=== PATIENT | female | born 1970 | race Caucasian/White ===

== ENCOUNTER 2016-05-16 05:04 | Inpatient (IN) | payer OTHER ==
[2016-05-13 15:47] VITALS: BMI 34.0
[2016-05-16] VITALS (31 sets, daily range): BP systolic 93–146; BP diastolic 45–70; PULSE 55–76; RESP 12–25; Ht 162.6 cm; Wt 88.6 kg
[~2016-05-16] VITALS: Ht 162.6 cm; Wt 88.6 kg
[~2016-05-16 05:04] MED LIST: CEFAZOLIN 2 GM/50 ML (PMX) 50 ML IVPB ONE; LACTATED RINGER'S 1,000 ML IV* SCH
[2016-05-16] MEDS ORDERED: PROPOFOL 20 ML ONE (06:11)
[2016-05-16] MEDS ORDERED: ROCURONIUM 50 MG INJ ONE (06:11)
[2016-05-16] MEDS ORDERED: LIDOCAINE 2% (SDV) 5 ML INJ ONE (06:11)
[2016-05-16] MEDS ORDERED: GLYCOPYRROLATE 1 MG INJ ONE (06:11)
[2016-05-16] MEDS ORDERED: NEOSTIGMINE 3 MG/3 ML SYRINGE ONE (06:11)
[2016-05-16] MEDS ORDERED: DEXAMETHASONE 4 MG/ML 1 ML INJ ONE ×2 (06:12→06:17)
[2016-05-16] MEDS ORDERED: MIDAZOLAM 1 MG/ML 2 ML INJ ONE (06:12)
[2016-05-16] MEDS ORDERED: FENTAnyl 50 MCG/ML VIAL ONE (06:12)
[2016-05-16] MEDS ORDERED: ONDANSETRON 4 MG INJ ONE (06:13)
[2016-05-16] MEDS ORDERED: hydrALAzine 20 MG INJ IV PRN (06:30)
[2016-05-16] MEDS ORDERED: OXYCODONE/ACETAMINOPHEN (5/325) TAB PO PRN ×2 (06:30)
[2016-05-16] MEDS ORDERED: DIPHENHYDRAMINE 50 MG INJ IV PRN (06:30)
[2016-05-16] MEDS ORDERED: FENTAnyl 50 MCG/ML VIAL IV PRN ×2 (06:30)
[2016-05-16] MEDS ORDERED: LABETALOL HCL 20MG INJ IV PRN (06:30)
[2016-05-16] MEDS ORDERED: ATROPINE 1 MG/10 ML SYRINGE IV PRN (06:30)
[2016-05-16] MEDS ORDERED: morphine (1 MG/ML) 10ML SYRINGE IV PRN ×3 (06:30)
[2016-05-16] MEDS ORDERED: HYDROmorphONE (0.2 MG/ML) 10ML SYG IV PRN ×3 (06:30)
[2016-05-16] MEDS ORDERED: MEPERIDINE 25 MG INJ IV PRN (06:30)
[2016-05-16] MEDS ORDERED: EPHEDrine SULFATE 50 MG/5 ML SYG IV PRN (06:30)
[2016-05-16] MEDS ORDERED: ONDANSETRON 4 MG INJ IV PRN (06:30)
[2016-05-16] MEDS ORDERED: MIDAZOLAM 1 MG/ML 2 ML INJ IV PRN (06:30)
[2016-05-16] MEDS ORDERED: GELATIN SIZE 100 SPONGE ONE (06:57)
[2016-05-16] MEDS ORDERED: POLYMYXIN/BACITRACIN 1L IRRIG ONE (06:57)
[2016-05-16] MEDS ORDERED: BUPIVACAINE 0.25% (MPF) 10 ML 10 ML VIAL ONE (06:57)
[2016-05-16] MEDS ORDERED: THROMBIN 5000 UNIT VIAL ONE ×2 (06:57→06:59)
[2016-05-16] MEDS ORDERED: AMLO-145 PO (06:59)
--- NOTE | 2016-05-16 07:07 | HPN ---
Date/Time of Note Date/Time of Note DATE: 05/16/16 TIME: 07:06 Interval H&P Admission Note Pt. seen H&P reviewed: No system changes PARRISH FLORENCE MD May 16, 2016 07:06
[2016-05-16] MEDS ORDERED: LABETALOL HCL 20MG INJ ONE (07:33)
[2016-05-16] MEDS ORDERED: hydrALAzine 20 MG INJ ONE (07:35)
[2016-05-16] MEDS ORDERED: NACL 0.9% 3 ML SYG IV SCH (09:30)
[2016-05-16] MEDS ORDERED: NALOXONE (0.4 MG/ML) INJ IV PRN (09:30)
--- NOTE | 2016-05-16 09:32 | OPPN ---
Date/Time of Note Date/Time of Note DATE: 05/16/16 TIME: 09:28 Operative/Procedure Note Pre-Operative Diagnosis Lumbar spinal stenosis at L4-5 Herniated disc at L4-5 centrally and to the right Post-Operative Diagnosis Same Procedure Central decompressive laminectomy at L4 Partial central decompressive laminectomy at L5 (superiorly) Microdiscectomy L4-5 on the right Medial facetectomy and foraminotomy L4-5 bilaterally Cosmetic wound closure (5 cm) Lateral localizing lumbar radiographs (2) Intraoperative nerve monitoring (2 hours) Surgeon: PARRISH FLORENCE MD [place] Operator: RANDALL ROSS Anesthesiologist: JESSICA KNUTSON MD Findings At surgery a small to moderate central and right paracentral herniation at L4-5 was confirmed. There was mild central and moderately severe lateral recess stenosis at L4-5 bilaterally Blood Usage/Administration None Implants/Grafts: Not applicable Estimated blood loss: 10 - 50 ml's Drains 2 medium Hemovac drains employed Specimens Disc material at L4-5 Spinous process of L4 Complications: None Anesthesia type: general PARRISH FLORENCE MD May 16, 2016 09:32
[2016-05-16] MEDS ORDERED: HYDROmorphONE 0.2 MG/ML PCA ONE (09:43)
[2016-05-16] MEDS ORDERED: TRIMETHOBENZAMIDE 100 MG/ML VIAL IM PRN (10:00)
[2016-05-16] MEDS ORDERED: DIAZEPAM 5 MG/ML SYG IM PRN (10:00)
[2016-05-16] MEDS ORDERED: PROCHLORPERAZINE 10 MG TAB PO PRN (10:00)
[2016-05-16] MEDS ORDERED: BETHANECHOL 25 MG TAB PO PRN (10:00)
[2016-05-16] MEDS ORDERED: ACETAMINOPHEN 325 MG TAB PO PRN (10:00)
[2016-05-16] MEDS ORDERED: ZOLPIDEM 5 MG TAB PO PRN (10:00)
[2016-05-16] MEDS ORDERED: DIPHENHYDRAMINE 50 MG CAP PO PRN (10:00)
[2016-05-16] MEDS ORDERED: AL HYDROX/MG HYDROX/SIMETH 30 ML CUP PO PRN (10:00)
[2016-05-16] MEDS ORDERED: HYDROmorphONE 0.2 MG/ML PCA IV SCH (10:00)
--- NOTE | 2016-05-16 10:22 | OPR ---
DATE OF OPERATION: 05/16/2016 PREOPERATIVE DIAGNOSES: 1. Herniated disk, L4-5 centrally and to the right. 2. Lumbar spinal stenosis at L4-L5 (mild central and moderately severe lateral recess bilaterally). POSTOPERATIVE DIAGNOSES: 1. Herniated disk, L4-5 centrally and to the right. 2. Lumbar spinal stenosis at L4-L5 (mild central and moderately severe lateral recess bilaterally). OPERATIVE PROCEDURE: 1. Central decompressive laminectomy at L4. 2. Partial central decompression laminectomy at L5 (superiorly). 3. Microdiskectomy L4-5 on the right. 4. Medial facetectomy and foraminotomy, L4-5 bilaterally. 5. Cosmetic wound closure (5 cm). 6. Lateral localized lumbar radiographs (2). 7. Intraoperative nerve monitoring (2 hours). SURGEON: Meng Hurt MD CLINICAL TRAINING COORDINATOR: Ramona Mahajan PA-C ANESTHESIA: General endotracheal. ANESTHESIOLOGIST: Colby Piedra MD ESTIMATED BLOOD LOSS: 20 mL, none replaced. DRAINS: Two medium Hemovac drains employed. COMPLICATIONS: None. PERTINENT HISTORY AND PHYSICAL: This is a 45-year-old female who sustained an injury to her back in course of employment on 08/14/2015. She has had extensive care since that time, has remained sympto matic with back and right leg pain which has been unrelieved by conservative management. She has un dergone a number of diagnostic studies including an MRI of the lumbar spine, which demonstrated a ce ntral and right paracentral herniation at L4-L5 with lateral recess stenosis (moderately severe) at that level. Treatment options were discussed with the patient, she elected to surgery. OPERATIVE FINDINGS AT SURGERY: A small to moderate central and right paracentral herniation at L4-L 5 was confirmed along with a moderately severe lateral recess stenosis at L4-L5 bilaterally. OPERATIVE PROCEDURE: With the patient in supine position after satisfactory induction of general en dotracheal anesthesia by Dr. Piedra. The patient was turned to the prone kneeling position on the [facility] frame. All pressure points were carefully padded. Back was prepped and draped in usual hetal rile fashion. Athrombic pumps were applied to the legs below the knees to prevent venous stasis dur ing and after procedure. An indwelling Colindres catheter was also placed preoperatively to facilitate bladder drainage during and after the procedure. Two spinal needles were placed next to what was fe lt to be the L4 and L5 spinous processes, lateral roentgenogram was taken which confirmed anatomic l ocalization. A 5 cm incision then carried out midline over the spinous process of L4 after skin was infiltrated with 0.25% Marcaine without epinephrine for postoperative analgesia. Superficial retra ctors were placed and hemostasis secured with electrocautery. Throughout the procedure, copious kim unts of antibacterial irrigating solution used to periodically irrigate the wound. The fascia was i ncised in midline with a hot knife and a bilateral subperiosteal dissection carried out at L5. Deep retractors were placed and deep hemostasis secured with electrocautery. A second intraoperative ra diograph was taken with a Sonya clamp placed in what was felt to be the spinous process of L4. Thi s was confirmed with second x-ray. A central decompressive laminectomy at L4 was then carried out u sing a Aspen right-angle bone rongeur, Leksell rongeur, Kerrison punches and curettes. The operat ing microscope was then moved into place. A medial facetectomy and foraminotomy was accomplished us ing small hand osteotome, mallet, Kerrison punches and curettes. The attention then turned to the L4-5 disk on the right where the L5 root was mobilized medially and protected with Maria D'Naomie nerve root retractor using microdissection technique. This revealed a ricardo iation of the L4-5 disk. A 15 blade knife used to cut a rectangular window in the annulus and poste rior longitudinal ligament and multiple degenerative disk fragments were harvested with pituitary ro ngeurs and sent to laboratory for pathologic study. Additional fragments were harvested using Epste in curettes. A thorough search of the floor of the canal was made with an arthroscopic probe and no additional fragments were encountered. The epidural hemostasis was secured with bipolar electrocau roger on low setting. Anesthesiologist was asked to perform a Valsalva maneuver at 40 mmHg and no sp inal fluid leakage was noted. The wound was then closed in layers over 2 medium Hemovac drains, one below the fascia and one above the fascia using #1 Vicryl [id number] approximating sutures in deep paralumbar musculature and deep fascia of back, 2-0 Vicryl subcutaneous approximating sutures o n the subcu tissue, and a 4-0 Vicryl subcuticular cosmetic closing suture on the skin. Dermabond an d sterile compressive dressings were applied. The patient having tolerated the procedure well was t hen turned to the supine position onto her bed and extubated by Dr. Piedra. She was transported to the recovery room in satisfactory condition. At the conclusion of the procedure, sponge, instrument , and needle counts were all correct. NEED FOR COMMERCIAL CREDIT HEAD: During this spinal surgical procedure, my accounts receivable assistant was used to retrac t and protect the spinal nerves and dural sac. My accounts receivable assistant also employed the suction catheters to e vacuate blood from the surgical field to improve visualization of the neural structures. The assista nt was medically necessary to facilitate the completion of the surgery in a safe and expeditious man ner. State of [place] regulations, as well as hospital bylaws, preclude the use of non-licensed [facility] care personnel such as operating room technicians, to perform these functions. Throughout the procedure, neural monitoring was carried out by [employer] including EMG, SSEP and MEP monitoring of the L3, L4, L5 and S1 nerve roots bilaterally along with spinal cord potentials. These were interpreted by a neurologist employed by [employer]. Dictated By: MENG HURT MD TM/NTS Conf#: [id number] DID#: [id number] CC: ABHISHEK WILSON MD;*EndCC*
--- NOTE | 2016-05-16 11:03 | RADRPT ---
PROCEDURE: Lateral view of the lumbar spine. CLINICAL INDICATION: Surgical planning for lumbar laminectomy. TECHNIQUE: A cross-table lateral view is performed. COMPARISON: No. FINDINGS: There are metal needle markers projecting across the L4-5 interspinous space with the tip of the nee dle dorsal to the neural canal at the level of L4. There is a second needle marker abutting the watson santino surface of the S1. There are clips in the pelvis. There are degenerative osteophytes in the massimo mbar spine. IMPRESSION: 1. Cross-table lateral view demonstrate a needle marker projecting at the level of the L4 vertebra and dorsal to the S1 vertebra. 2. 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 RPTAT:AAJJ Physician Jyoti Date Time Electronically viewed and signed by Physician Jyoti on 05/16/2016 11:03 /
--- NOTE | 2016-05-16 11:08 | RADRPT ---
PROCEDURE: XR Lumbar Spine. CLINICAL INDICATION: Lumbar laminectomy. TECHNIQUE: Lumbar spine x-ray, single cross-table lateral view. COMPARISON: 05/16/2016 at 0741 hours. FINDINGS: Vertebral body heights are normal. Surgical instrumentation is present within the posterior spinal soft tissues at the L4-L5 intervertebral disk level. Degenerative changes of the spine are present. IMPRESSION: Degenerative changes of the lumbar spine with surgical instrumentation at the L4-L5 intervertebral d isk level. RPTAT: HLST .Ivelisse Mayorga MD, MD Date Time Electronically viewed and signed by .Ivelisse Mayorga MD, on 05/16/2016 11:07 .T/
[2016-05-16] MEDS: CEFAZOLIN 1 GM/50 ML (PMX) 50 ML IVPB SCH ×2 (12:24→17:19)
[2016-05-16] MEDS: DEXTROSE 5%-0.45% NACL 1,000 ML IV SCH ×2 (12:24→20:00)
[2016-05-16] MEDS: ONDANSETRON 4 MG INJ IV PRN (12:41)
[2016-05-16] MEDS: DIAZEPAM 5 MG TAB PO PRN (15:18)
[2016-05-16] MEDS: CEPASTAT LOZENGE MT PRN (17:19)
--- NOTE | 2016-05-16 19:52 | PN ---
Date/Time of Note Date/Time of Note DATE: 05/16/16 TIME: 19:37 Assessment/Plan VTE Prophylaxis VTE Prophylaxis Intervention: ambulation, SCD's Lines/Catheters IV Catheter Type (from Nrsg): Peripheral IV Urinary Cath still in place: Yes Reason Cath still needed: other (indicate) (May be removed.) Assessment/Plan Assessment/Plan The patient is recovering well post surgical procedure. No complications. Continue post surgical care as per Dr. Hurt's team. PT daily. Ambulate as tolerated with assistance. Plan for PO pain meds. Subjective 24 Hr Interval Summary Free Text/Dictation 45 y/o female status post decompressive lumbar laminectomy at L4 with microdiscectomy at L4-L5 on 05/19/2016. The patient is comfortable in bed, but reports pain levels of 8/10 VAS. Started PT today. Was able to ambulate with assistance. Reports 1 episode n/v with morphine via HOP SEPARATOR. No other complaints. Constitutional: no complaints Respiratory: no complaints Cardiovascular: no complaints Gastrointestinal: nausea (due to pain meds), no complaints, vomiting (due to pain meds (morphine HOP SEPARATOR)) Genitourinary: no complaints Musculoskeletal: back pain Skin: no complaints Neurologic: other (RLE numbness) Endocrine: no complaints Psychological: nl mood/affect, no complaints Immunologic: no complaints Exam/Review of Systems Vital Signs Vitals Vital Signs Date Time Temp Pulse Resp B/P Pulse Ox O2 Delivery O2 Flow Rate FiO2 05/16/16 17:00 18 05/16/16 11:21 66 115/65 99 Nasal Cannula 2.0 05/16/16 09:35 98.1 Exam Constitutional: alert, oriented Psych: nl mood/affect, no complaints Head: atraumatic, normocephalic Eyes: EOMI, PERRL, nl conjunctiva, nl lids, nl sclera ENMT: nl external ears & nose, nl lips & teeth, nl nasal mucosa & septum Neck: non-tender, supple Respiratory: clear to auscultation, normal air movement Cardiovascular: nl pulses, regular rate and rhythm Gastrointestinal: nl liver, spleen, non-tender, soft Genitourinary - Female: other (urinary cath in place draining clear yellow urine freely.) Musculoskeletal: nl extremities to inspection, other (Surgical wound appears intact, draining blood via HemoVac. No discharge, puss, surrounding erythema, swelling or warmth.), No muscle weakness Extremities: normal pulses, No calf tenderness (compression device in place ), No edema Neurological: LOAN REVIEW ANALYST II-XII intact, nl mental status, nl speech, nl strength, numbness (RLE), No focal weakness Skin: nl turgor, No rash or lesions Medications Medications Current Medications Lactated Ringer's 1,000 ml @ 25 mls/hr Q24H IV* ; Start 05/16/16 at 05:00; Stop 05/17/16 at 20:59 Dextrose/Sodium Chloride (D5-1/2ns) 1,000 ml @ 100 mls/hr Q10H IV Last administered on 05/16/16 12:24; Admin Dose 100 MLS/HR; Start 05/16/16 at 10:00 Acetaminophen/ Hydrocodone Bitart ([place] (5/325)) 1 tab Q4H PRN PO PAIN LEVEL 1 -5; Start 05/16/16 at 09:30; Status Future Hold Acetaminophen/ Hydrocodone Bitart 2 tab 2 tab Q4H PRN PO PAIN LEVEL 6-10; Start 05/16/16 at 09:30; Status Future Hold Cefazolin Sodium (Ancef 1 Gm/50 ml (Pmx)) 50 ml @ 100 mls/hr Q6 IVPB Last administered on 05/16/16 17:19; Admin Dose 100 MLS/HR; Start 05/16/16 at 12:00 ; Stop 05/17/16 at 06:29 Zolpidem Tartrate (Ambien) 5 mg HS PRN PO INSOMNIA; Start 05/16/16 at 10:00 Prochlorperazine (Compazine) 10 mg Q4H PRN PO NAUSEA AND/OR VOMITING; Start at 10:00 Trimethobenzamide HCl (Tigan) 200 mg Q4H PRN IM NAUSEA AND/OR VOMITING; Start 05/16/16 at 10:00 Ondansetron HCl (Zofran Inj) 4 mg Q6H PRN IV NAUSEA AND/OR VOMITING Last administered on 05/16/16 12:41; Admin Dose 4 MG; Start 05/16/16 at 10:00 Al Hydrox/Mg Hydrox/Simethicone (Mag-Al Plus) 15 ml Q4H PRN PO CONSTIPATION; Start 05/16/16 at 10:00 Docusate Sodium (Colace) 100 mg BID PO ; Start 05/17/16 at 09:00 Acetaminophen (Tylenol Tab) 650 mg Q4H PRN PO TEMP GREATER THAN 101F OR BOYKIN; Start 05/16/16 at 10:00 Ascorbic Acid (Vitamin C) 1,000 mg BID PO ; Start 05/17/16 at 09:00 Ferrous Sulfate (Ferrous Sulfate (Ec)) 325 mg TID PO ; Start 05/17/16 at 09:00 Ranitidine HCl (Zantac) 150 mg BID PO ; Start 05/16/16 at 21:00 Diazepam (Valium) 5 mg Q4H PRN PO MUSCLE SPASMS Last administered on 05/16/16 15:18; Admin Dose 5 MG; Start 05/16/16 at 10:00 Diazepam (Valium) 5 mg Q4H PRN IM MUSCLE SPASMS; Start 05/16/16 at 10:00 Phenol (Cepastat Lozenge) 1 lozenge PRN PRN MT SORE THROAT Last administered on 05/16/16 17:19; Admin Dose 1 LOZENGE; Start 05/16/16 at 10:00 Bethanechol Chloride (Urecholine) 25 mg PRN PRN PO UNABLE TO VOID; Start at 10:00 Diphenhydramine HCl (Benadryl) 50 mg Q6H PRN PO PRURITUS; Start 05/16/16 at 10: 00 Hydromorphone HCl (Dilaudid HOP SEPARATOR) Q4PCA IV Last administered on 05/16/16 10:05 ; Admin Dose 6 MG; Start 05/16/16 at 10:00 Naloxone HCl (Narcan) 0.2 mg Q2M PRN IV RR 8 BREATHS/MIN OR LESS; Start at 09:30 ABHISHEK WILSON May 16, 2016 19:48
[2016-05-16] MEDS: RANITIDINE 150 MG TAB PO SCH (21:03)
[2016-05-17] MEDS: CEFAZOLIN 1 GM/50 ML (PMX) 50 ML IVPB SCH ×2 (00:05→05:42)
[2016-05-17] MEDS: DIAZEPAM 5 MG TAB PO PRN (00:05)
[2016-05-17 00:10] VITALS: BP 97/50; PULSE 61; RESP 16
[2016-05-17 05:19] LABS: HEMOGLOBIN 11.5 g/dl (12.0-16.0)
[2016-05-17 05:37] LABS: POTASSIUM 3.9 mmol/L (3.5-5.1)
[2016-05-17 05:39] LABS: CREATININE 0.63 mg/dl (0.44-1.00)
[2016-05-17 05:40] LABS: CALCIUM 8.6 mg/dl (8.4-10.2)
[2016-05-17] MEDS: DEXTROSE 5%-0.45% NACL 1,000 ML IV SCH ×2 (05:43→16:00)
[2016-05-17] MEDS: CEPASTAT LOZENGE MT PRN (05:48)
--- NOTE | 2016-05-17 07:36 | PN ---
Date/Time of Note Date/Time of Note DATE: 05/17/16 TIME: 07:35 Assessment/Plan Lines/Catheters IV Catheter Type (from Nrs): Peripheral IV Colindres in Place (from Nrsg): Yes Subjective 24 Hr Interval Summary Patient is postop day #1 from lumbar decompression and discectomy. She has been up ambulating. Neurovascular structures are intact. Drain output overnight was 10 cc and this was removed. Incision is healing well. Vital signs are stable, hemoglobin today is 11.5. Plan for today is to progress ambulation, DC DEICER KIT ASSEMBLER and Colindres. She may be discharged if she is cleared by physical therapy and internal medicine Exam/Review of Systems Vital Signs Vitals Vital Signs Date Time Temp Pulse Resp B/P Pulse Ox O2 Delivery O2 Flow Rate FiO2 05/17/16 05:55 17 05/17/16 00:10 97.9 61 97/50 97 Room Air 05/16/16 11:21 2.0 Intake and Output 05/16/16 05/16/16 05/17/16 15:00 23:00 07:00 Intake Total 1160 ml 1200 ml 1230 ml Output Total 450 ml 1340 ml 1810 ml Balance 710 ml -140 ml -580 ml Results Result Diagram: 05/17/16 0428 05/17/16 0428 RANDALL ROSS 14, 2017 07:36
[2016-05-17] MEDS ORDERED: BETHANECHOL 25 MG TAB PO PRN (08:00)
[2016-05-17] MEDS: FERROUS SULFATE (EC) 325 MG TAB PO SCH ×3 (08:23→20:29)
[2016-05-17] MEDS: RANITIDINE 150 MG TAB PO SCH ×2 (08:23→20:28)
[2016-05-17] MEDS: DOCUSATE SODIUM 100 MG CAP PO SCH ×2 (08:24→20:28)
[2016-05-17] MEDS: ASCORBIC ACID 500 MG TAB PO SCH ×2 (08:24→20:29)
[2016-05-17] MEDS: HYDROCODONE/APAP (5/325) TAB PO PRN ×4 (08:24→20:29)
[2016-05-17 08:39] VITALS: BP 99/54; RESP 18
[2016-05-17 11:19] LABS: ADD UMIC NO; URINE BILIRUBIN (Dip) NEGATIVE (NEGATIVE); URINE BLOOD (Dip) NEGATIVE (NEGATIVE); URINE COLOR LT. YELLOW (YELLOW); URINE GLUCOSE (Dip) NEGATIVE (NEGATIVE); URINE KETONES (Dip) NEGATIVE (NEGATIVE); URINE LEUKOCYTE ESTERASE (Dip) NEGATIVE (NEGATIVE); URINE NITRITE (Dip) NEGATIVE (NEGATIVE); URINE TOTAL PROTEIN (Dip) NEGATIVE (NEGATIVE); URINE UROBILINOGEN (Dip) 0.2 E.U./dL (0.1-1.0)
--- NOTE | 2016-05-17 20:03 | PN ---
Date/Time of Note Date/Time of Note DATE: 05/17/16 TIME: 19:48 Assessment/Plan VTE Prophylaxis VTE Prophylaxis Intervention: ambulation, SCD's Lines/Catheters IV Catheter Type (from Nrs): Saline Lock Urinary Cath still in place: No Assessment/Plan Chief Complaint/Hosp Course Status post decompressive lumbar laminectomy at L4 with microdiscectomy at L4- L5 on 05/19/2016. Problems: Assessment/Plan The patient is doing well. Ambulatory. Able to void urine. Surgical site healing well without signs of infection. Labs WNLs, except for decreased h&h (pre-admission 13.5/39.6) No sign of active bleeding, likely post surgical. Medicine to continue to follow. Discharge as per surgical team. Subjective 24 Hr Interval Summary Free Text/Dictation 45 y/o female status post decompressive lumbar laminectomy at L4 with microdiscectomy at L4-L5 on 05/19/2016. Day#2. The patient is comfortable in bed. Reports pain levels of 7/10 VAS. She off of ePCA. Using PO pain meds. HemoVac was removed this AM by surgery team. Continues PT. able to ambulate with assistance of a walker. Constitutional: improved, no complaints Respiratory: cough (non productive, using spirometer interittently), No shortness of breath, No wheezing Cardiovascular: no complaints Gastrointestinal: no complaints, No nausea, No vomiting Musculoskeletal: back pain Skin: no complaints Neurologic: other (decreased sensation RLE) Endocrine: no complaints Psychological: nl mood/affect, no complaints Immunologic: no complaints Exam/Review of Systems Vital Signs Vitals Vital Signs Date Time Temp Pulse Resp B/P Pulse Ox O2 Delivery O2 Flow Rate FiO2 05/17/16 08:39 97.9 64 18 99/54 97 05/17/16 00:10 Room Air 05/16/16 11:21 2.0 Intake and Output 05/16/16 05/16/16 05/17/16 15:00 23:00 07:00 Intake Total 1160 ml 1200 ml 1230 ml Output Total 450 ml 1340 ml 1810 ml Balance 710 ml -140 ml -580 ml Exam Constitutional: alert, oriented, well developed Psych: nl mood/affect, no complaints Head: atraumatic, normocephalic Eyes: EOMI, PERRL, nl conjunctiva, nl lids, nl sclera ENMT: nl external ears & nose, nl lips & teeth, nl nasal mucosa & septum Respiratory: clear to auscultation, congested cough (occasional), normal air movement Cardiovascular: nl pulses, regular rate and rhythm Gastrointestinal: nl liver, spleen, non-tender, soft Musculoskeletal: muscle tone, nl extremities to inspection, other (surgical site clean. no discharge, surrounding erythema, swelling or warmth. ), No joint tenderness, No muscle weakness Extremities: normal pulses, other (RLE sensationsds diminished, unchnaged.), No calf tenderness, No edema Neurological: BUSINESS DIVISION CHAIR II-XII intact, nl mental status, nl speech, nl strength, No focal weakness Skin: nl turgor, rash or lesions Results Result Diagram: 05/17/1642705/17/16427 Results 24 hrs Laboratory Tests Test 05/17/16 04:28 05/17/16 08:30 Anion Gap 12 Blood Urea Nitrogen 10 Calcium Level 8.6 Carbon Dioxide Level 25 Chloride Level 106 Creatinine 0.63 Glucose Level 117 Hematocrit 34.0 L Hemoglobin 11.5 L Potassium Level 3.9 Sodium Level 139 Urine Bilirubin NEGATIVE Urine Clarity CLEAR Urine Color LT. YELLOW Urine Glucose NEGATIVE Urine Hemoglobin NEGATIVE Urine Ketones NEGATIVE Urine Leukocyte Esterase NEGATIVE Urine Nitrite NEGATIVE Urine Specific [place] <=1.005 L Urine Total Protein NEGATIVE Urine Urobilinogen 0.2 E.U./dL Urine pH 5.5 Medications Medications Current Medications Lactated Ringer's 1,000 ml @ 25 mls/hr Q24H IV* ; Start 05/16/16 at 05:00; Stop 05/17/16 at 20:59 Dextrose/Sodium Chloride (D5-1/2ns) 1,000 ml @ 100 mls/hr Q10H IV Last administered on 05/16/16 12:24; Admin Dose 100 MLS/HR; Start 05/16/16 at 10:00 Acetaminophen/ Hydrocodone Bitart ([place] (5/325)) 1 tab Q4H PRN PO PAIN LEVEL 1 -5 Last administered on 05/17/16 17:24; Admin Dose 1 TAB; Start 05/16/16 at 09: 30; Status Future hold Acetaminophen/ Hydrocodone Bitart ([place] (5/325)) 2 tab Q4H PRN PO PAIN LEVEL 6 -10; Start 05/16/16 at 09:30; Status Future hold Zolpidem Tartrate (Ambien) 5 mg HS PRN PO INSOMNIA; Start 05/16/16 at 10:00 Prochlorperazine (Compazine) 10 mg Q4H PRN PO NAUSEA AND/OR VOMITING; Start at 10:00 Trimethobenzamide HCl (Tigan) 200 mg Q4H PRN IM NAUSEA AND/OR VOMITING; Start 05/16/16 at 10:00 Ondansetron HCl (Zofran Inj) 4 mg Q6H PRN IV NAUSEA AND/OR VOMITING Last administered on 05/16/16 12:41; Admin Dose 4 MG; Start 05/16/16 at 10:00 Al Hydrox/Mg Hydrox/Simethicone (Mag-Al Plus) 15 ml Q4H PRN PO CONSTIPATION; Start 05/16/16 at 10:00 Docusate Sodium (Colace) 100 mg BID PO Last administered on 05/17/16 08:24; Admin Dose 100 MG; Start 05/17/16 at 09:00 Acetaminophen (Tylenol Tab) 650 mg Q4H PRN PO TEMP GREATER THAN 101F OR BOYKIN; Start 05/16/16 at 10:00 Ascorbic Acid (Vitamin C) 1,000 mg BID PO Last administered on 05/17/16 08:24 ; Admin Dose 1,000 MG; Start 05/17/16 at 09:00 Ferrous Sulfate (Ferrous Sulfate (Ec)) 325 mg TID PO Last administered on 08:23; Admin Dose 325 MG; Start 05/17/16 at 09:00 Ranitidine HCl (Zantac) 150 mg BID PO Last administered on 05/17/16 08:23; Admin Dose 150 MG; Start 05/16/16 at 21:00 Diazepam (Valium) 5 mg Q4H PRN PO MUSCLE SPASMS Last administered on 05/17/16 00:05; Admin Dose 5 MG; Start 05/16/16 at 10:00 Diazepam (Valium) 5 mg Q4H PRN IM MUSCLE SPASMS; Start 05/16/16 at 10:00 Phenol (Cepastat Lozenge) 1 lozenge PRN PRN MT SORE THROAT Last administered on 05/17/16 05:48; Admin Dose 1 LOZENGE; Start 05/16/16 at 10:00 Bethanechol Chloride (Urecholine) 25 mg PRN PRN PO UNABLE TO VOID; Start at 10:00 Diphenhydramine HCl (Benadryl) 50 mg Q6H PRN PO PRURITUS; Start 05/16/16 at 10: 00 Naloxone HCl (Narcan) 0.2 mg Q2M PRN IV RR 8 BREATHS/MIN OR LESS; Start at 09:30 Bethanechol Chloride (Urecholine) 25 mg PRN PRN PO UNABLE TO VOID; Start at 08:00 ABHISHEK WILSON May 17, 2016 19:58
[2016-05-17 21:14] VITALS: BP 103/53; RESP 20
[2016-05-18] MEDS: DEXTROSE 5%-0.45% NACL 1,000 ML IV SCH ×2 (02:00→12:00)
[2016-05-18] MEDS: HYDROCODONE/APAP (5/325) TAB PO PRN ×4 (02:45→16:41)
[2016-05-18 07:45] VITALS: BP 100/51; PULSE 62; RESP 16
[2016-05-18] MEDS: DOCUSATE SODIUM 100 MG CAP PO SCH (08:35)
[2016-05-18] MEDS: ONDANSETRON 4 MG INJ IV PRN ×2 (08:35→14:59)
[2016-05-18] MEDS: RANITIDINE 150 MG TAB PO SCH (08:36)
[2016-05-18] MEDS: FERROUS SULFATE (EC) 325 MG TAB PO SCH ×2 (08:36→12:48)
[2016-05-18] MEDS: ASCORBIC ACID 500 MG TAB PO SCH (08:36)
[2016-05-18] MEDS: DIAZEPAM 5 MG TAB PO PRN ×2 (09:58→14:55)
--- NOTE | 2016-05-18 13:22 | PN ---
Date/Time of Note Date/Time of Note DATE: 05/18/16 TIME: 13:21 Assessment/Plan Lines/Catheters IV Catheter Type (from Nrsg): Saline Lock Colindres in Place (from Nrsg): No Subjective 24 Hr Interval Summary Patient is postop day #2. She is doing well and has been up ambulating, neurovascular structures are intact. She is cleared by physical therapy. She is tolerating diet and has better pain control today. She will be discharged home later today if cleared by internal medicine. DC instructions reviewed with patient. Exam/Review of Systems Vital Signs Vitals Vital Signs Date Time Temp Pulse Resp B/P Pulse Ox O2 Delivery O2 Flow Rate FiO2 05/18/16 07:45 97.9 62 16 100/51 96 Room Air 05/16/16 11:21 2.0 Intake and Output 05/17/16 05/17/16 05/18/16 15:00 23:00 07:00 Intake Total 500 ml Balance 500 ml Results Result Diagram: 05/17/16 0428 05/17/16 0428 RANDALL ROSS May 18, 2016 13:22
--- NOTE | 2016-05-23 11:29 | DS ---
Date/Time of Note Date/Time of Note DATE: 05/23/16 TIME: 11:27 Discharge Summary Admission/Discharge Info Admit Date/Time May 16, 2016 at 05:04 Discharge Date/Time May 18, 2016 at 19:25 Final Diagnosis 1. Herniated disk, L4-5 centrally and to the right. 2. Lumbar spinal stenosis at L4-L5 (mild central and moderately severe lateral recess bilaterally). Patient Condition: Fair Hospital Course Pt did well post-op. Her diet was advanced as tolerated. Pain was well controlled. She was ambulating and cleared for discharge. She was discharged to home in good condition on POD #2 Home Meds Reported Medications Amlodipine Besylate* (Amlodipine Besylate*) 5 Mg Tablet, 5 MG PO DAILY, #30 05/16/16 Follow-up Plan Follow up with Dr. Hurt in 2 weeks RANDALL ROSS May 23, 2016 11:28
== END 2016-05-18 19:25 | disposition home or self-care (01) | DRG 520 ==
LOC: REC 05:04 → MS1 11:50
PROVIDERS: ADMIT Orthopaedic Surgery; ATTEND Orthopaedic Surgery
PROC: 01NB0ZZ Release Lumbar Nerve, Open Approach (ICD-10-PCS; 2016-05-16)
PROC: 0SB20ZZ Excision of Lumbar Vertebral Disc, Open Approach (ICD-10-PCS; principal; 2016-05-16 07:00)
DX: M51.16 Intervertebral disc disorders with radiculopathy, lumbar region (principal); I10 Essential (primary) hypertension; M06.9 Rheumatoid arthritis, unspecified; E78.2 Mixed hyperlipidemia; M05.79 Rheumatoid arthritis with rheumatoid factor of multiple sites without organ or systems involvement; M48.06 Spinal stenosis, lumbar region
CPT/HCPCS: 72020; 80048; 81003; 84703; 85014; 85018; 86850; 86900; 86901; 86920; 87086; 97116; 97162; 97530; J0360; J0690; J1100; J1170; J1200; J2175; J2250; J2405; J2710; J3010; J7042; J7120

== ENCOUNTER → 2016-08-11 | Outpatient (CLI) | payer OTHER ==
[~2016-08-11] MED LIST changes: +AMLO-145 PO; -CEFAZOLIN 2 GM/50 ML (PMX) 50 ML IVPB ONE; -LACTATED RINGER'S 1,000 ML IV* SCH
[2016-08-11 11:00] LABS: CREATININE 0.72 mg/dl (0.44-1.00)
== END | disposition home or self-care (01) ==
LOC: LAB 10:18
PROVIDERS: ATTEND Orthopaedic Surgery
DX: S33.5XXD Sprain of ligaments of lumbar spine, subsequent encounter (principal)
CPT/HCPCS: 82565; 84520

== ENCOUNTER 2017-03-23 17:43 | Emergency (ER) | END 2017-03-23 20:11 | disposition home or self-care (01) ==

== ENCOUNTER → 2018-09-13 | Outpatient (CLI) | payer OTHER ==
[~2018-09-13] MED LIST changes: +IBUP-1542 PO; +IOHEXOL 100 ML ONE; +NITROGLYCERIN AEROSOL (4.9 GM) ONE; +NITROGLYCERIN AEROSOL (4.9 GM) SL ONE; +OSEL75CA23 PO; +SOD CHLORIDE 0.9% 100 ML ONE
== END | disposition home or self-care (01) ==
LOC: C/S 09:31
PROVIDERS: ATTEND Internal Medicine
DX: R94.39 Abnormal result of other cardiovascular function study (principal); R07.9 Chest pain, unspecified
CPT/HCPCS: 75571; 75574; Q9967; Z7610